=== PATIENT | male | born 1970 | race Caucasian/White ===

== ENCOUNTER 2017-05-18 13:00 | Emergency (ER) | payer OTHER ==
[~2017-05-18] VITALS: Ht 182.9 cm; Wt 122.5 kg
[2017-05-18] MEDS ORDERED: SODIUM CHLORIDE FLUSH 10ML SYR IVF ONE (13:30)
[2017-05-18 13:43] LABS: BLOOD UREA NITROGEN 18 mg/dL (7-18)
[2017-05-18 13:48] LABS: IS PT STATUS REG ER OR PRE ER? YES
[2017-05-18 15:52] LABS: IS PT STATUS REG ER OR PRE ER? YES
[2017-05-18] MEDS ORDERED: KETOROLAC 30 MG/1 ML ONE (16:26)
[2017-05-18] MEDS ORDERED: LORazepam 2 MG/ML, 1ML ONE (16:26)
[2017-05-18] MEDS ORDERED: LORazepam 2 MG/ML, 1ML IVPush ONE (17:00)
[2017-05-18] MEDS ORDERED: KETOROLAC 30 MG/1 ML IVPush ONE (17:00)
[2017-05-18 17:11] VITALS: BP 144/76
== END 2017-05-18 17:14 | disposition home or self-care (01) ==
LOC: ED 14:05
DX: R07.2 Precordial pain (principal); I25.2 Old myocardial infarction; I50.9 Heart failure, unspecified; Z86.73 Personal history of transient ischemic attack (TIA), and cerebral infarction without residual deficits
CPT/HCPCS: 36415; 71010; 80048; 82040; 84484; 85025; 93005; 96374; 96375; 99285; J1885; J2060

== ENCOUNTER 2017-06-03 02:11 | Inpatient (IN) | payer OTHER ==
[~2017-06-03] VITALS: Ht 182.9 cm; Wt 108.3 kg
[2017-06-03] MEDS ORDERED: ATOR20TA9 PO (02:40)
[2017-06-03] MEDS ORDERED: MULT-658 PO (02:40)
[2017-06-03] MEDS ORDERED: ASPI-515 PO (02:40)
[2017-06-03] MEDS ORDERED: NITR0.4T8 SL (02:40)
[2017-06-03] MEDS ORDERED: LISI-167 PO (02:40)
[2017-06-03] MEDS ORDERED: MAGN2400 PO (02:40)
[2017-06-03] MEDS ORDERED: SPIR25TA3 PO (02:40)
[2017-06-03] MEDS ORDERED: CARV12.52 PO (02:40)
[2017-06-03] MEDS ORDERED: PE/S52CR RC (02:40)
[2017-06-03] MEDS ORDERED: NAPR220T29 PO (02:40)
[2017-06-03] MEDS ORDERED: DOCU100C8 PO (02:40)
[2017-06-03] MEDS ORDERED: CHOL200012 PO (02:40)
[2017-06-03 02:49] LABS: ASPARTATE AMINO TRANSFERASE 14 U/L (15-37); BLOOD UREA NITROGEN 25 mg/dL (7-18)
[2017-06-03 03:02] LABS: IS PT STATUS REG ER OR PRE ER? YES
[2017-06-03] MEDS ORDERED: OMNIPAQUE 350 MG/ML, 100ML BOTTLE ONE (03:02)
[2017-06-03] MEDS ORDERED: METRONIDAZOLE PMX 500MG/100ML 100 ML IV ONE (04:00)
[2017-06-03] MEDS ORDERED: CIPROFLOXACIN/PMX 400MG/200ML 200 ML IV ONE (04:00)
[2017-06-03] MEDS ORDERED: MORPHINE SULFATE 4 MG/ML, 1ML ONE ×3 (04:12→14:33)
[2017-06-03] MEDS ORDERED: ONDANSETRON 2MG/ML, 2ML ONE (04:12)
[2017-06-03] MEDS: morphine SULFATE 10 MG/ML, 1ML IVPush PRN ×2 (04:25→14:38)
[2017-06-03] MEDS ORDERED: CIPROFLOXACIN/PMX 400MG/200ML 200 ML ONE (04:27)
[2017-06-03] MEDS ORDERED: morphine SULFATE 10 MG/ML, 1ML IVPush ONE (04:30)
[2017-06-03] MEDS: CIPROFLOXACIN/PMX 400MG/200ML 200 ML IV SCH ×2 (04:30→16:51)
[2017-06-03] MEDS ORDERED: POLYETHYLENE GLYCOL 17 GM PACKET PO PRN (04:30)
[2017-06-03] MEDS ORDERED: DOCUSATE 100 MG CAPSULE PO PRN (04:30)
[2017-06-03] MEDS: METRONIDAZOLE PMX 500MG/100ML 100 ML IV SCH ×3 (04:30→21:51)
[2017-06-03] MEDS ORDERED: ACETAMINOPHEN 325 MG TABLET PO PRN (04:30)
[2017-06-03] MEDS ORDERED: ONDANSETRON 2MG/ML, 2ML IVPush ONE (04:30)
[2017-06-03] MEDS ORDERED: NITROGLYCERIN 0.4 MG BOTTLE (25 TABS) SL SCH (04:30)
[2017-06-03 09:00] VITALS: BP 90/48
[2017-06-03] MEDS: LISINOPRIL 10 MG TABLET PO SCH (09:00)
[2017-06-03] MEDS: CARVEDILOL 12.5 MG TABLET PO SCH ×2 (09:00→21:00)
[2017-06-03] MEDS: SPIRONOLACTONE 25 MG TABLET PO SCH (09:00)
[2017-06-03] MEDS: ATORVASTATIN 20 MG TABLET PO SCH (09:24)
[2017-06-03 13:52] VITALS: BP 105/62
[2017-06-03] MEDS: ONDANSETRON 2MG/ML, 2ML IVPush PRN (14:38)
[2017-06-03] MEDS: NS + 20MEQ KCL 1,000 ML IV SCH (14:39)
[2017-06-03 19:29] VITALS: BP 103/61
[2017-06-03] MEDS: HYDROcodone/APAP 5/325 TABLET PO PRN (19:51)
[2017-06-03] MEDS: PANTOPRAZOLE 40 MG IV IVPush SCH (21:52)
[2017-06-04] MEDS: NS + 20MEQ KCL 1,000 ML IV SCH ×2 (00:57→22:44)
[2017-06-04 01:03] VITALS: BP 115/59
[2017-06-04] MEDS: morphine SULFATE 10 MG/ML, 1ML IVPush PRN (01:38)
[2017-06-04] MEDS: CIPROFLOXACIN/PMX 400MG/200ML 200 ML IV SCH ×2 (04:59→16:40)
[2017-06-04] MEDS: METRONIDAZOLE PMX 500MG/100ML 100 ML IV SCH ×3 (06:06→21:20)
[2017-06-04 06:11] VITALS: BP 100/50
[2017-06-04 06:24] LABS: BLOOD UREA NITROGEN 20 mg/dL (7-18)
[2017-06-04 07:07] VITALS: BP 117/72
[2017-06-04 07:29] VITALS: BP 114/49
[2017-06-04] MEDS: CARVEDILOL 12.5 MG TABLET PO SCH ×2 (09:00→21:12)
[2017-06-04] MEDS: SPIRONOLACTONE 25 MG TABLET PO SCH (09:00)
[2017-06-04] MEDS: LISINOPRIL 10 MG TABLET PO SCH (09:00)
[2017-06-04] MEDS: HYDROcodone/APAP 5/325 TABLET PO PRN ×4 (09:22→21:20)
[2017-06-04] MEDS: PANTOPRAZOLE 40 MG IV IVPush SCH ×2 (09:23→21:03)
[2017-06-04] MEDS: ATORVASTATIN 20 MG TABLET PO SCH (09:23)
[2017-06-04 13:03] VITALS: BP 109/61
[2017-06-04] MEDS: LACTOBACILLUS CHEW TABLET PO SCH ×2 (16:40→21:03)
[2017-06-04 19:09] VITALS: BP 117/72
[2017-06-05] MEDS: HYDROcodone/APAP 5/325 TABLET PO PRN ×3 (01:19→20:55)
[2017-06-05 03:26] VITALS: BP 103/56
[2017-06-05] MEDS: CIPROFLOXACIN/PMX 400MG/200ML 200 ML IV SCH ×2 (04:36→15:57)
[2017-06-05 05:40] LABS: ASPARTATE AMINO TRANSFERASE 14 U/L (15-37); BLOOD UREA NITROGEN 17 mg/dL (7-18)
[2017-06-05] MEDS: LACTOBACILLUS CHEW TABLET PO SCH ×4 (05:41→20:55)
[2017-06-05] MEDS: METRONIDAZOLE PMX 500MG/100ML 100 ML IV SCH ×3 (05:41→20:56)
[2017-06-05 09:05] VITALS: BP 112/55
[2017-06-05] MEDS: CARVEDILOL 12.5 MG TABLET PO SCH ×2 (09:32→20:55)
[2017-06-05] MEDS: PANTOPRAZOLE 40 MG IV IVPush SCH ×2 (09:32→20:55)
[2017-06-05] MEDS: ATORVASTATIN 20 MG TABLET PO SCH (09:33)
[2017-06-05] MEDS: SPIRONOLACTONE 25 MG TABLET PO SCH (09:33)
[2017-06-05] MEDS: LISINOPRIL 10 MG TABLET PO SCH (09:33)
[2017-06-05] MEDS: morphine SULFATE 10 MG/ML, 1ML IVPush PRN ×2 (09:56→15:48)
[2017-06-05 13:01] VITALS: BP 117/72
[2017-06-05] MEDS: NS + 20MEQ KCL 1,000 ML IV SCH (15:48)
[2017-06-05 18:01] VITALS: BP_SYST 86; BP_SYST 92; BP_DIAS 49; BP_DIAS 56
[2017-06-05] MEDS: SODIUM CHLORIDE 0.9% 1,000 ML IV SCH (18:37)
[2017-06-05 19:14] VITALS: BP 98/47
[2017-06-05] MEDS: ONDANSETRON 2MG/ML, 2ML IVPush PRN (23:33)
[2017-06-06 01:44] VITALS: BP 107/71
[2017-06-06] MEDS: HYDROcodone/APAP 5/325 TABLET PO PRN ×5 (01:46→21:12)
[2017-06-06] MEDS: CIPROFLOXACIN/PMX 400MG/200ML 200 ML IV SCH ×2 (04:27→16:35)
[2017-06-06] MEDS: SODIUM CHLORIDE 0.9% 1,000 ML IV SCH ×2 (04:31→16:35)
[2017-06-06] MEDS: LACTOBACILLUS CHEW TABLET PO SCH ×4 (05:59→21:12)
[2017-06-06] MEDS: METRONIDAZOLE PMX 500MG/100ML 100 ML IV SCH ×3 (05:59→21:13)
[2017-06-06 06:09] LABS: ASPARTATE AMINO TRANSFERASE 11 U/L (15-37); BLOOD UREA NITROGEN 16 mg/dL (7-18)
[2017-06-06 08:41] VITALS: BP 91/54
[2017-06-06] MEDS: ATORVASTATIN 20 MG TABLET PO SCH (09:00)
[2017-06-06] MEDS: CARVEDILOL 12.5 MG TABLET PO SCH ×2 (09:00→21:12)
[2017-06-06] MEDS: LISINOPRIL 10 MG TABLET PO SCH (09:00)
[2017-06-06] MEDS: SPIRONOLACTONE 25 MG TABLET PO SCH (09:00)
[2017-06-06] MEDS: PANTOPRAZOLE 40 MG IV IVPush SCH ×2 (10:55→22:37)
[2017-06-06 15:13] VITALS: BP 147/78
[2017-06-06 16:10] VITALS: BP 117/80
[2017-06-06 21:01] VITALS: BP 124/71
[2017-06-07] MEDS: HYDROcodone/APAP 5/325 TABLET PO PRN ×5 (01:14→18:06)
[2017-06-07 02:47] VITALS: BP 104/57
[2017-06-07] MEDS: SODIUM CHLORIDE 0.9% 1,000 ML IV SCH ×2 (04:30→13:44)
[2017-06-07] MEDS: CIPROFLOXACIN/PMX 400MG/200ML 200 ML IV SCH ×2 (04:31→16:23)
[2017-06-07 06:08] LABS: BLOOD UREA NITROGEN 9 mg/dL (7-18)
[2017-06-07] MEDS: LACTOBACILLUS CHEW TABLET PO SCH ×4 (06:11→21:13)
[2017-06-07] MEDS: METRONIDAZOLE PMX 500MG/100ML 100 ML IV SCH ×3 (06:11→21:13)
[2017-06-07 07:41] VITALS: BP 105/57
[2017-06-07] MEDS: LISINOPRIL 10 MG TABLET PO SCH (09:55)
[2017-06-07] MEDS: ATORVASTATIN 20 MG TABLET PO SCH (09:55)
[2017-06-07] MEDS: SPIRONOLACTONE 25 MG TABLET PO SCH (09:56)
[2017-06-07] MEDS: PANTOPRAZOLE 40 MG IV IVPush SCH ×2 (09:56→21:12)
[2017-06-07] MEDS: CARVEDILOL 12.5 MG TABLET PO SCH ×2 (09:56→21:13)
[2017-06-07 14:00] VITALS: BP 107/70
[2017-06-07 18:55] VITALS: BP 126/55
[2017-06-07] MEDS: ONDANSETRON 2MG/ML, 2ML IVPush PRN (19:35)
[2017-06-08] MEDS: HYDROcodone/APAP 5/325 TABLET PO PRN ×5 (00:06→17:18)
[2017-06-08] MEDS: ONDANSETRON 2MG/ML, 2ML IVPush PRN (01:58)
[2017-06-08 02:00] VITALS: BP 120/66
[2017-06-08] MEDS: CIPROFLOXACIN/PMX 400MG/200ML 200 ML IV SCH ×2 (03:59→16:31)
[2017-06-08] MEDS: SODIUM CHLORIDE 0.9% 1,000 ML IV SCH ×2 (03:59→13:20)
[2017-06-08] MEDS: METRONIDAZOLE PMX 500MG/100ML 100 ML IV SCH ×3 (05:43→22:45)
[2017-06-08] MEDS: LACTOBACILLUS CHEW TABLET PO SCH ×4 (05:43→20:11)
[2017-06-08 07:10] VITALS: BP 109/65
[2017-06-08] MEDS: PANTOPRAZOLE 40 MG IV IVPush SCH ×2 (08:50→20:11)
[2017-06-08] MEDS: CARVEDILOL 12.5 MG TABLET PO SCH ×2 (08:51→20:11)
[2017-06-08] MEDS: ATORVASTATIN 20 MG TABLET PO SCH (08:51)
[2017-06-08] MEDS: SPIRONOLACTONE 25 MG TABLET PO SCH (08:51)
[2017-06-08] MEDS: LISINOPRIL 10 MG TABLET PO SCH (08:51)
[2017-06-08 15:09] VITALS: BP 130/84
[2017-06-08 15:23] VITALS: BP 119/74
[2017-06-08 20:00] VITALS: BP 106/54
[2017-06-09 01:53] VITALS: BP 139/88
[2017-06-09] MEDS: HYDROcodone/APAP 5/325 TABLET PO PRN ×4 (01:53→19:52)
[2017-06-09] MEDS: SODIUM CHLORIDE 0.9% 1,000 ML IV SCH ×2 (04:16→16:24)
[2017-06-09] MEDS: CIPROFLOXACIN/PMX 400MG/200ML 200 ML IV SCH ×2 (04:16→16:26)
[2017-06-09] MEDS: LACTOBACILLUS CHEW TABLET PO SCH ×4 (05:54→19:52)
[2017-06-09] MEDS: METRONIDAZOLE PMX 500MG/100ML 100 ML IV SCH ×3 (05:54→19:52)
[2017-06-09 07:24] VITALS: BP 119/74
[2017-06-09 08:12] VITALS: BP 102/62
[2017-06-09] MEDS: SPIRONOLACTONE 25 MG TABLET PO SCH (08:14)
[2017-06-09] MEDS: LISINOPRIL 10 MG TABLET PO SCH (08:14)
[2017-06-09] MEDS: ATORVASTATIN 20 MG TABLET PO SCH (08:14)
[2017-06-09] MEDS: CARVEDILOL 12.5 MG TABLET PO SCH ×2 (08:14→19:52)
[2017-06-09] MEDS: PANTOPRAZOLE 40 MG IV IVPush SCH ×2 (08:14→19:52)
[2017-06-09 12:13] VITALS: BP 119/69
[2017-06-09 20:03] VITALS: BP 141/90
[2017-06-10] VITALS (7 sets, daily range): BP systolic 101–135; BP diastolic 56–83
[2017-06-10] MEDS: HYDROcodone/APAP 5/325 TABLET PO PRN ×5 (00:02→23:37)
[2017-06-10] MEDS: ONDANSETRON 2MG/ML, 2ML IVPush PRN ×2 (00:11→08:46)
[2017-06-10] MEDS: SODIUM CHLORIDE 0.9% 1,000 ML IV SCH ×3 (03:40→23:37)
[2017-06-10] MEDS: CIPROFLOXACIN/PMX 400MG/200ML 200 ML IV SCH (03:40)
[2017-06-10] MEDS: LACTOBACILLUS CHEW TABLET PO SCH ×4 (05:20→21:34)
[2017-06-10] MEDS: METRONIDAZOLE PMX 500MG/100ML 100 ML IV SCH (05:20)
[2017-06-10 05:25] LABS: BLOOD UREA NITROGEN 6 mg/dL (7-18)
[2017-06-10] MEDS: CARVEDILOL 12.5 MG TABLET PO SCH ×2 (08:44→21:34)
[2017-06-10] MEDS: PANTOPRAZOLE 40 MG IV IVPush SCH ×2 (08:44→21:38)
[2017-06-10] MEDS: LISINOPRIL 10 MG TABLET PO SCH (08:44)
[2017-06-10] MEDS: ATORVASTATIN 20 MG TABLET PO SCH (08:44)
[2017-06-10] MEDS: SPIRONOLACTONE 25 MG TABLET PO SCH (08:44)
[2017-06-10] MEDS: metroNIDAZOLE 500 MG TABLET PO SCH ×2 (12:14→19:33)
[2017-06-10] MEDS: CIPROFLOXACIN 250 MG TABLET PO SCH ×2 (12:14→23:36)
[2017-06-10] MEDS: morphine SULFATE 10 MG/ML, 1ML IVPush PRN (13:54)
[2017-06-11 01:28] VITALS: BP 146/86
[2017-06-11] MEDS: metroNIDAZOLE 500 MG TABLET PO SCH ×2 (02:37→11:23)
[2017-06-11] MEDS: HYDROcodone/APAP 5/325 TABLET PO PRN (04:14)
[2017-06-11] MEDS: LACTOBACILLUS CHEW TABLET PO SCH ×2 (06:12→11:23)
[2017-06-11 07:56] VITALS: BP 117/68
[2017-06-11] MEDS: LISINOPRIL 10 MG TABLET PO SCH (08:27)
[2017-06-11] MEDS: PANTOPRAZOLE 40 MG IV IVPush SCH (08:27)
[2017-06-11] MEDS: SPIRONOLACTONE 25 MG TABLET PO SCH (08:27)
[2017-06-11] MEDS: CARVEDILOL 12.5 MG TABLET PO SCH (08:27)
[2017-06-11] MEDS: ATORVASTATIN 20 MG TABLET PO SCH (08:27)
[2017-06-11] MEDS: SODIUM CHLORIDE 0.9% 1,000 ML IV SCH (11:00)
== END 2017-06-11 12:14 | DRG 378 ==
LOC: ED 02:23 → SUATTDRO 04:15 → EDIP 04:15 → 4NOR 05:20 → 3NE 06-08 15:23
PROVIDERS: ADMIT Family Medicine; ATTEND Family Medicine
DX: K92.2 Gastrointestinal hemorrhage, unspecified (principal); D62 Acute posthemorrhagic anemia; N17.9 Acute kidney failure, unspecified; K57.32 Diverticulitis of large intestine without perforation or abscess without bleeding; I50.9 Heart failure, unspecified; I11.0 Hypertensive heart disease with heart failure; K64.9 Unspecified hemorrhoids; K52.9 Noninfective gastroenteritis and colitis, unspecified; I25.2 Old myocardial infarction; Z86.73 Personal history of transient ischemic attack (TIA), and cerebral infarction without residual deficits
CPT/HCPCS: 36415; 74177; 80048; 80053; 83605; 84145; 84484; 85014; 85018; 85025; 85610; 85730; 86850; 86900; 87040; 87324; 93005; 96365; 96375; J0744; J2405; J3480; Q9967; C9113; J2270; J7030

== ENCOUNTER 2017-07-02 00:04 | Inpatient (IN) | payer OTHER ==
[~2017-07-02] VITALS: Ht 193 cm; Wt 103.9 kg
[~2017-07-02 00:04] MED LIST: ASPI-515 PO; ATOR20TA9 PO; CARV12.52 PO; CHOL200012 PO; DOCU100C8 PO; LISI-167 PO; MAGN2400 PO; MULT-658 PO; NAPR220T29 PO; NITR0.4T8 SL; PE/S52CR RC; SPIR25TA3 PO
[2017-07-02 00:48] LABS: HEMOGLOBIN 14.8 g/dL (13.7-18.0); WHITE BLOOD COUNT 9.1 x10^3/uL (3.4-10)
[2017-07-02 01:18] LABS: IS PT STATUS REG ER OR PRE ER? YES
[2017-07-02] MEDS ORDERED: ONDANSETRON 2MG/ML, 2ML ONE (01:54)
[2017-07-02] MEDS ORDERED: ACETAMINOPHEN 325 MG TABLET ONE (01:54)
[2017-07-02] MEDS ORDERED: ONDANSETRON 2MG/ML, 2ML IVPush ONE (02:00)
[2017-07-02] MEDS ORDERED: ACETAMINOPHEN 325 MG TABLET PO ONE (02:00)
[2017-07-02] MEDS ORDERED: OMNIPAQUE 350 MG/ML, 100ML BOTTLE ONE (02:56)
[2017-07-02 03:36] VITALS: BP 161/121
[2017-07-02 04:00] VITALS: BP 161/121
[2017-07-02] MEDS ORDERED: ASPIRIN 81 MG TABLET EC PO ONE (04:00)
[2017-07-02] MEDS ORDERED: BISACODYL 10 MG SUPP PR PRN (04:00)
[2017-07-02] MEDS ORDERED: SODIUM CHLORIDE 0.9% 1,000 ML IV SCH (04:00)
[2017-07-02] MEDS ORDERED: ACETAMINOPHEN 650 MG/20.3 ML UDC PO PRN (04:00)
[2017-07-02] MEDS ORDERED: SENNA/DOCUSATE TABLET PO PRN (04:00)
[2017-07-02] MEDS ORDERED: hydrALAzine 20 MG/ML, 1ML IV PRN ×2 (04:30→12:30)
[2017-07-02 04:33] VITALS: BP 161/121
[2017-07-02 07:56] LABS: BLOOD UREA NITROGEN 12 mg/dL (7-18)
[2017-07-02 08:01] LABS: IS PT STATUS REG ER OR PRE ER? NO
[2017-07-02 09:40] VITALS: BP 147/94
[2017-07-02] MEDS ORDERED: LORazepam 2 MG/ML, 1ML IVPush ONE (11:30)
[2017-07-02 14:15] VITALS: BP 169/118
[2017-07-02] MEDS ORDERED: ATOR40TA78 PO (17:15)
[2017-07-02] MEDS ORDERED: ATOR20TA9 PO (17:15)
[2017-07-02] MEDS ORDERED: DOCU100C8 PO (17:16)
[2017-07-02] MEDS ORDERED: CHOL20002 PO (17:16)
[2017-07-02] MEDS ORDERED: SPIR25TA3 PO (17:17)
[2017-07-02] MEDS ORDERED: CARV12.543 PO (17:17)
[2017-07-02] MEDS ORDERED: NITR0.4T8 SL (17:17)
[2017-07-02] MEDS ORDERED: LISI-167 PO (17:17)
[2017-07-02] MEDS ORDERED: ATORVASTATIN 20 MG TABLET PO SCH (21:00)
== END 2017-07-02 18:38 | disposition home or self-care (01) | DRG 948 ==
LOC: ED 02:02 → EDIP 02:39 → 4EST 03:35
DX: R53.1 Weakness (principal); I11.0 Hypertensive heart disease with heart failure; I50.30 Unspecified diastolic (congestive) heart failure; R07.89 Other chest pain; E78.5 Hyperlipidemia, unspecified; E78.1 Pure hyperglyceridemia; K57.30 Diverticulosis of large intestine without perforation or abscess without bleeding; D64.9 Anemia, unspecified; I25.10 Atherosclerotic heart disease of native coronary artery without angina pectoris; I25.2 Old myocardial infarction; Z86.73 Personal history of transient ischemic attack (TIA), and cerebral infarction without residual deficits; Z65.3 Problems related to other legal circumstances; Z91.14 Patient's other noncompliance with medication regimen
CPT/HCPCS: 36415; 70450; 70496; 70498; 70551; 71010; 78452; 80047; 80048; 80061; 82962; 84484; 85025; 85610; 85730; 93005; 93017; 93306; 96374; J2405; Q9967; A9502; C9898; J2060; J7030

== ENCOUNTER → 2017-08-21 | Outpatient (CLI) | payer OTHER ==
[~2017-08-21] MED LIST changes: +ATOR40TA78 PO; +CARV12.543 PO; -CHOL200012 PO; +CHOL20002 PO; +CHOL200074 PO; +DOCU100C33 PO; -DOCU100C8 PO; +NAPR-816 PO; -NAPR220T29 PO; +NITR0.4T28 SL; -NITR0.4T8 SL
== END | disposition home or self-care (01) ==
LOC: RAD 13:56
PROVIDERS: ATTEND Internal Medicine Endocrinology, Diabetes & Metabolism
DX: G81.94 Hemiplegia, unspecified affecting left nondominant side (principal)
CPT/HCPCS: 70450